=== PATIENT | female | born 1955 | race Caucasian/White ===

== ENCOUNTER 2020-12-12 08:00 | Day surgery (SDC) | payer OTHER ==
[2020-12-03 13:19] VITALS: BMI 35.2
[2020-12-12] MEDS ORDERED: fentaNYL CITRATE 250 MCG/5 ML VIAL ONE (09:44)
[2020-12-12] MEDS ORDERED: MIDAZOLAM HCL 2 MG/2 ML SINGLE DOSE VIAL ONE (09:44)
[2020-12-12] MEDS ORDERED: LIDOCAINE HCL 2% (50ML VIAL) NR ONE ×2 (09:58→10:04)
[2020-12-12] MEDS ORDERED: ONDANSETRON 4 MG/2 ML VIAL ONE (10:09)
[2020-12-12] MEDS ORDERED: DEXAMETHASONE SOD PHOSPHATE 4 MG/1 ML VIAL ONE (10:09)
[2020-12-12] MEDS ORDERED: KETOROLAC TROMETHAMINE 30 MG/1 ML VIAL ONE (10:09)
[2020-12-12 11:00] VITALS: BP 126/63; PULSE 67; TEMP 97.7
== END 2020-12-12 11:05 | disposition home or self-care (01) ==
LOC: FASU 08:00
PROVIDERS: ATTEND Orthopaedic Surgery Hand Surgery
PROC: 0LN80ZZ Release Left Hand Tendon, Open Approach (ICD-10-PCS; 2020-12-12)
PROC: 0LN80ZZ Release Left Hand Tendon, Open Approach (ICD-10-PCS; principal; 2020-12-12 10:04)
DX: M65.322 Trigger finger, left index finger (principal); M65.332 Trigger finger, left middle finger
CPT/HCPCS: 82962